=== PATIENT | female | born 1980 | race Caucasian/White ===

== ENCOUNTER 2020-04-25 07:05 | Outpatient (CLI) | payer OTHER, SELFPAY ==
--- NOTE | 2020-04-29 07:59 | SLEEP_ITS ---
HOME SLEEP STUDY DATE OF STUDY: 04/25/2020 ORDERING PHYSICIAN: Dr. Cj Rojas. REASON FOR THE STUDY: Sleep disturbance. HISTORY: This patient is a 39-year-old female, 5 feet 9 inches tall, weighing 355 pounds with a body mass index of 52.4. She has complaints of difficulty staying asleep, frequently waking up during the night. She is unable to lie flat in the bed because of sinus drainage and stuffiness. This all began about 5 or 7 years ago. She has tried Zyrtec-D to help with sinus congestion. She has also tried melatonin to help initiate sleep, but it leaves a hangover effect. There is a family history with her father having sleep apnea and her mother snoring loudly. She wakes up throughout the night, early in the morning and has severe excessive daytime sleepiness. She frequently snores and it is constantly loud enough that others complain about it. She frequently awakens at night with heartburn, belching, and feeling short of breath. She constantly has trouble sleeping with a cold. She suddenly wakes up at night gasping for breath frequently and frequently is told by others that she has breathing problems at night. She occasionally sweats excessively at night, occasionally notices her heart pounding irregularly at night, frequently falls asleep during the day, involuntarily occasionally while driving rarely during physical effort. She does not have loss of muscle tone with strong emotion. She rarely has daytime difficulties due to excessive sleepiness. She is a pharmacist. She occasionally feels paralyzed on waking or falling asleep. She occasionally has vivid dreamlike scenes upon awakening or falling asleep. She does not feel afraid to go to sleep. She rarely has nightmares. She occasionally remembers her dreams, occasionally has racing thoughts. She does not feel sad or depressed. She occasionally has anxiety. Rarely has muscular tension. Occasionally notices parts of her body jerking. She frequently kicks at night, frequently has crawly achy feelings in the leg and frequently has leg pain at night. She does not have morning jaw pain. She does not grind her teeth at night. She occasionally is bothered by pain during the day as well as pain at night. She occasionally wakes up feeling stiff in the morning with sore achy muscles and pain in the neck and spine. She has insomnia. Normal bedtime is between 9:30 and 10 p.m., taking 15 minutes to fall asleep waking 4-5 times at night for 30 minutes to an hour. During this time, she will try to go back to sleep or watch television if she cannot fall asleep again. She wakes up at 7 in the morning. On the weekend, she may go to bed by 11 p.m. and wake up by 9 in the morning. She does sometimes take a short nap. A short nap may be refreshing. She is usually drowsy in the morning for 2 hours or longer. MEDICAL COMORBIDITIES: Hypertension, polycystic ovarian syndrome, edema, seasonal allergies, abdominal pain. MEDICATIONS: 1. Metformin 500 mg daily. 2. Losartan 100 mg daily. 3. Metoprolol succinate 50 mg a day. 4. Spironolactone 100 mg daily. 5. Albuterol inhaler 2 puffs q.i.d. p.r.n. shortness of breath. 6. Dicyclomine 10 mg t.i.d. p.r.n. for abdominal pain. 7. Cyclobenzaprine 10 mg t.i.d. p.r.n. for muscle cramps. HABITS: Never smoked tobacco. Caffeine, 3 servings per day. Alcohol, 3 servings per month. DESCRIPTION OF THE STUDY: On the [place] Sleepiness Scale, the score is 18. This was conducted as an unattended type 3 portable home sleep test using 4 channel monitoring including respiratory effort channel, snoring channel, oxygen saturation channel, and heart rate channel. The duration was 9 hours 13 minutes. The apnea-hypopnea index is 57. Oxygen desaturation index is 45. She h
== END 2020-04-25 07:06 | disposition home or self-care (01) ==
LOC: ANHCSM 07:05
PROVIDERS: PCP Internal Medicine; Visit Provider Internal Medicine
DX: G47.9 Sleep disorder, unspecified (principal); R09.02 Hypoxemia; Z68.43 Body mass index [BMI] 50.0-59.9, adult; I10 Essential (primary) hypertension
CPT/HCPCS: 95806

== ENCOUNTER 2020-06-06 01:32 | Outpatient (CLI) | payer OTHER, SELFPAY ==
[2020-06-06 18:12] LABS: SARS-CoV-2 RNA PCR Negative
== END 2020-06-06 01:33 | disposition home or self-care (01) ==
LOC: ANHCOVIDDT 01:32
PROVIDERS: PCP Internal Medicine; Visit Provider Internal Medicine Critical Care Medicine
DX: Z20.828 Contact with and (suspected) exposure to other viral communicable diseases (principal)
CPT/HCPCS: 87635; C9803; U0003

== ENCOUNTER 2020-06-08 08:50 | Outpatient (CLI) | payer OTHER, SELFPAY ==
--- NOTE | 2020-06-22 21:30 | SLEEP_ITS ---
CPAP TITRATION DATE OF STUDY: 06/08/2020 ORDERING PHYSICIAN: Cj Rojas MD. REASON FOR THE STUDY: Sleep apnea, unspecified. HISTORY: This patient is a 40-year-old female, 69 inches tall, weighing 365 pounds with a body mass index of 53.9. Neck circumference is 22 inches. A prior home sleep test 04/25/2020 showed severe obstructive sleep apnea with AHI 57, desaturation to 40% and a mean saturation of 78%. She has a history of loud snoring with her family observing that she stops breathing while sleeping. This is going on for 1-2 years. She wakes up during the night, wakes up in the certified medical aide hours and has excessive daytime sleepiness. Her father has sleep apnea and the mother snores. She occasionally awakens from sleep feeling short of breath, frequently awakens at night with heartburn, belching, or coughing. She constantly has trouble sleeping with a cold, frequently gasps for breath at night, which wakes her and frequently has breathing problems reported to her by others. She occasionally sweats excessively at night, only rarely notices her heart pounding or beating irregularly at night. She frequently falls asleep during the day, occasionally involuntarily, rarely while driving, and rarely during physical effort. She does not have loss of muscle tone with strong emotion, rarely has daytime difficulties due to excessive sleepiness. She occasionally has vivid dreamlike scenes upon awakening or falling asleep. She is never afraid to go to sleep. She does not have nightmares. She occasionally remembers her dreams and occasionally has racing thoughts. She rarely feels sad or depressed. She occasionally has anxiety. She rarely has muscular tension. She occasionally notices parts of her body jerking, occasionally kicks at night and occasionally has crawly achy feelings in her legs. She frequently has leg pains at night. She rarely has morning jaw pain. She does not grind her teeth during sleep. She frequently is bothered by pain during the day, occasionally is awakened by pain at night. She frequently wakes up feeling stiff in the morning with sore achy muscles. She occasionally wakes up with pain in the neck and spine. She has palpitations, stomach problems, fatigue. Normal bedtime is 10:00 p.m., falling asleep in 2 minutes very quickly, waking 5-6 times at night on average, staying awake 30 minutes to an hour. During that time, she will go to the bathroom or get a drink or snack. She wakes in the morning between 5:00 and 6:00 a.m. She estimates 4-5 hours of sleep at night. Weekend schedule is the same. She works midnight shifts 9:00 p.m. to 7:00 a.m. every other week, 7 days on and 7 days off. She takes naps and a short nap may be refreshing. She is usually drowsy after waking for 2 hours or longer. She feels better in the evening than other times a day. MEDICAL COMORBIDITIES: 1. Hypertension. 2. Polycystic ovarian disease. 3. Edema. 4. Seasonal allergies. 5. Abdominal pain. MEDICATIONS: 1. Metformin 500 mg a day. 2. Losartan 100 mg a day. 3. Metoprolol succinate 50 mg a day. 4. Spironolactone 100 mg a day. 5. Albuterol 2 puffs q.i.d. p.r.n. shortness of breath. 6. Dicyclomine 10 mg t.i.d. p.r.n. abdominal pain. 7. Cyclobenzaprine 10 mg t.i.d. p.r.n. muscle cramps. HABITS: Never smoked tobacco. Caffeine, 3 servings a day. Alcohol, 3 servings per month. DESCRIPTION OF THE STUDY: On the [place] Sleepiness Scale, her score is 19. This was conducted as a full night CPAP titration using the [employer] multiple channel system including EOG, EEG, submental EMG, EKG, nasal and oral airflow using thermistors and nasal pressure sensors, chest and abdominal belts, body position data and pulse oximetry. Video r
== END 2020-06-08 08:51 | disposition home or self-care (01) ==
LOC: ANHCSM 08:51
PROVIDERS: PCP Internal Medicine; Visit Provider Internal Medicine
DX: G47.30 Sleep apnea, unspecified (principal)
CPT/HCPCS: 95811

== ENCOUNTER 2021-01-04 12:53 | Emergency (ER) | payer BC, SELFPAY ==
--- NOTE | ~2021-01-04 | XR_ITS ---
EXAMINATION: XR wrist RT min 3V EXAM DATE: 01/04/2021 13:18 INDICATION: Right wrist pain ? etiology. TECHNIQUE: Right wrist frontal, frontal with ulnar deviation, oblique and lateral projections obtain ed and reviewed. There is no prior study for comparison. FINDINGS: Right wrist scapholunate joint space is maintained. There are no bony erosions identified. Small curvilinear approximately 2 x 6 mm density identified on the lateral projection, volar to the radiocarpal joint. This could be a joint body, could be sequela from osteochondritis ossificans from uncertain donor site, could be from an old fracture. There are no acute fractures or dislocations ree ntified. There is no subcutaneous gas. There are no radiopaque foreign bodies. IMPRESSION: Small curvilinear density with some possible considerations above. Uncertain whether or n ot this is incidental or causing patient's wrist pain. Reviewed, dictated and finalized at location B. IMPRESSION: Small curvilinear density with some possible considerations above. Uncertain whether or not this is incidental or causing patient's wrist pain.
--- NOTE | 2021-01-04 12:57 | ED.UPPEXIN ---
HPI - Extremity Injury (Upper) General Chief Complaint: Extremity Injury, Upper Stated Complaint: right wrist pain Time Seen by Provider: 01/04/21 12:57 Source: patient and RN notes reviewed Mode of arrival: ambulatory Limitations: no limitations History of Present Illness HPI narrative: 40-year-old female presents to the [facility] with complaints of right wrist pain. Denies any trauma. Patient reports that yesterday morning she woke up and had some swelling and pain to her right wrist and hand. Decreased range of motion secondary to pain. Has been using ice and ibuprofen with minimal to no relief. right hand dominant Patient does have a history of diabetes, hypertension, lymphedema Related Data Home Medications Medication Instructions Recorded Confirmed furosemide 2 mg PO BID 01/04/21 01/04/21 losartan 1 mg PO DAILY 01/04/21 01/04/21 metformin 1 mg PO DAILY 01/04/21 01/04/21 potassium chloride 1 meq PO BID 01/04/21 01/04/21 spironolactone 1 mg PO DAILY 01/04/21 01/04/21 Allergies Allergy/AdvReac Type Severity Reaction Status Date / Time FREEDOM Inhibitors Allergy Mild Verified 02/27/13 11:04 methyldopa Allergy Mild Verified 02/27/13 11:04 amoxicillin Allergy Unknown Verified 02/25/15 11:00 AMOXICILLIN TRIHYDRATE Allergy Unknown VOMITING Uncoded 01/05/14 10:20 CAN TAKE OTHER PCN POTASSIUM CLAVULANATE Allergy Unknown VOMITING Uncoded 01/05/14 10:20 CAN TAKE OTHER PCN Review of Systems Review of Systems: All systems reviewed & are unremarkable except as noted in HPI and below Constitutional: Constitutional: Reports no additional constitutional complaints Cardiovascular: Cardiovascular: Reports no additional cardiovascular complaints and Denies chest pain Respiratory: Respiratory: Reports no additional respiratory complaints, Denies cough and Denies dyspnea Gastrointestinal: Gastrointestinal: Reports no additional gastrointestinal complaints, Denies abdominal pain, Denies diarrhea, Denies nausea and Denies vomiting Genitourinary: Genitourinary: Reports no additional female genitourinary complaints Musculoskeletal: Musculoskeletal: Reports arthralgias (Right wrist) and Reports joint swelling (Right wrist) Integumentary/Breasts: Skin/Breast: Reports system reviewed and no additional complaints, except as docu, Denies erythema and Denies rash Neurologic: Reports system reviewed and no additional complaints, except as documented, Denies headache(s) and Denies weakness Psychiatric: Psychiatric: Reports no additional psychiatric complaints PMFSH Past Medical History Medical History (Updated 01/05/21 @ 08:04 by Crissy Masters) Diabetes Hypertension Lymphedema Social History Social History Smoking status: Never smoker Alcohol intake: current Gender identity (if verbalized by the patient): Female Comments At the time of my signature, I reviewed and agree with the nursing past medical, surgical, social, and family history. There is no relevant family history pertinent to the patient complaint. Exam Const: General: healthy appearing, no acute distress and alert Nutritional Appearance: well nourished and obese Orientation/consciousness: patient oriented x3 Neck: Neck: normal visual inspection Chest: Chest palpation & inspection: normal inspection of the chest Resp: Effort & Inspection: normal respiratory effort Auscultation: clear to auscultation bilaterally Cardio: Rate: regular rate Skin: General skin exam: normal color Rashes: no rashes Wounds: no wounds Neuro: General: patient oriented x3 and moves all extremities Speech: normal speech Gait exam (Neuro): Normal gait present Extrem: Right upper extremity: normal capillary refill, shoulder/upper arm normal to inspection and normal ROM; no tenderness and no swelling, elbow/forearm normal to inspection and normal ROM; no tenderness and no swelling, wrist abnormal to insp
[2021-01-04 13:06] VITALS: BP 157/83; PULSE 81; RESP 16; TEMP 36.9; O2SAT 98
== END 2021-01-04 13:58 | disposition home or self-care (01) ==
PROVIDERS: Emergency Provider Nurse Practitioner; PCP Internal Medicine
DX: M25.531 Pain in right wrist (principal); E11.9 Type 2 diabetes mellitus without complications; I10 Essential (primary) hypertension
CPT/HCPCS: 29125; 73110; 99213; G0463

== ENCOUNTER 2021-08-30 11:12 | Outpatient (CLI) | payer BC, SELFPAY ==
--- NOTE | ~2021-08-30 | US_ITS ---
EXAMINATION: US abdomen complete DATE: 08/30/2021 11:40 INDICATION: Abdominal swelling. TECHNIQUE: Multiple grayscale and Doppler ultrasound images of the abdomen were obtained. COMPARISON: Ultrasound 10/16/2016, CT abdomen and pelvis 10/13/2011 FINDINGS: The visualized portions of the head, body, and tail of the pancreas are normal. Abdominal a evan is normal in caliber. Inferior vena cava is normal. The liver is normal without focal lesion. Th ere is normal flow in main portal vein. The gallbladder is normal in size. No gallstones or gallbladd er wall thickening. There was no sonographic Alexander sign. The common duct is normal and measures 4 mm . The kidneys are normal in size. The spleen is normal in size. IMPRESSION: 1. Normal complete abdomen ultrasound. Reviewed, dictated and finalized at location A. [employer]
== END 2021-08-30 11:13 ==
LOC: MICIMG 11:13
PROVIDERS: PCP Internal Medicine
DX: R19.00 Intra-abdominal and pelvic swelling, mass and lump, unspecified site (principal)
CPT/HCPCS: 76700

== ENCOUNTER 2023-04-24 09:47 | Outpatient (CLI) | payer BC, SELFPAY ==
--- NOTE | ~2023-04-24 | MM_ITS ---
EXAMINATION: MM screening radha BI w andreea HISTORY: Screening mammogram TECHNIQUE: Craniocaudal and mediolateral oblique 3-D tomosynthesis images were obtained and synthetic 2-D images were generated. Bilateral rotated lateral CC views. CAD analysis was submitted and interp reted. COMPARISON: 08/31/2019 bilateral diagnostic mammography and bilateral Limited breast ultrasound exami nation 07/24/2019 bilateral screening mammogram BREAST PARENCHYMAL COMPOSITION: There are scattered areas of fibroglandular density. FINDINGS: There is a biopsy marker in the right; history of prior benign right breast biopsy. There i s no evidence of suspicious mass, calcification, or architectural distortion to suggest malignancy in either breast. There has been no suspicious interval change. IMPRESSION: 1. No mammographic evidence of malignancy. 2. Recommend routine screening mammography in one year. BI-RADS Category 1: Negative Reviewed, dictated and finalized at location A.
== END 2023-04-24 09:48 | disposition home or self-care (01) ==
LOC: ANHIMG 09:51
PROVIDERS: PCP Internal Medicine; Visit Provider Student in an Organized Health Care Education/Training Program
DX: Z12.31 Encounter for screening mammogram for malignant neoplasm of breast (principal)
CPT/HCPCS: 77063; 77067

== ENCOUNTER 2024-04-13 11:35 | Emergency (ER) | payer BC, SELFPAY ==
--- NOTE | 2024-04-13 11:37 | ED.URI ---
HPI - URI/Sore Throat General Chief Complaint: Upper Respiratory Infection Stated Complaint: Sore Throat Time Seen by Provider: 04/13/24 12:15 Source: patient and RN notes reviewed Mode of arrival: ambulatory Limitations: no limitations History of Present Illness HPI Narrative: 43-year-old female presents concern for sore throat that started Saturday. She reports headache, bilateral ear pain. She denies fever, nasal congestion rhinorrhea MD elicited complaint: sore throat Related Data Home Medications Medication Instructions Recorded Confirmed losartan 100 mg tablet 1 mg PO DAILY 01/04/21 04/13/24 spironolactone 100 mg tablet 1 mg PO DAILY 01/04/21 04/13/24 metformin 500 mg tablet,extended 1,000 mg PO BID 10/09/22 04/13/24 release 24 hr empagliflozin 10 mg tablet 10 mg PO DAILY 10/22/23 04/13/24 (Jardiance) levothyroxine 112 mcg tablet 112 mcg PO DAILY 10/22/23 04/13/24 levothyroxine 150 mcg tablet 150 mcg PO DAILY 10/22/23 04/13/24 metoprolol succinate 25 mg 25 mg PO DAILY 10/22/23 04/13/24 tablet,extended release 24 hr Allergies Allergy/AdvReac Type Severity Reaction Status Date / Time amoxicillin [From Augmentin] Allergy Intermediate Nausea and Verified 04/13/24 11:46 Vomiting clavulanic acid Allergy Intermediate Nausea and Verified 04/13/24 11:46 [From Augmentin] Vomiting FREEDOM Inhibitors Allergy Mild Cough Verified 04/13/24 11:46 methyldopa Allergy Mild Joint Pain Verified 04/13/24 11:46 Review of Systems Review of Systems: CONSTITUTIONAL: Denies malaise, chills, sweats, or fever. EYES: Denies visual changes, redness, or discharge. ENT: Reports rhinorrhea, congestion, sinus pain. Reports otalgia and sore throat. CARDIOVASCULAR: Denies chest pain, palpitations, or edema. RESPIRATORY: Denies cough. Denies dyspnea. GASTROINTESTINAL: Denies abdominal pain, nausea, vomiting, diarrhea SKIN: Denies rash or itching. MUSCULOSKELETAL: Denies myalgia. NEUROLOGIC: Reports headache. All systems reviewed & are unremarkable except as noted in HPI and below PMFSH Past Medical History Medical History (Updated 04/13/24 @ 12:19 by Crissy Haywood NP) Diabetes Hypertension Lymphedema Screening mammogram for breast cancer Surgical History Surgical History (Updated 10/22/23 @ 10:41 by Tiffani Marley CMA) H/O thyroidectomy Social History Social History Smoking status: Never smoker Alcohol intake: current Substance use: never Living arrangements: other Additional living arrangements comments: Occupation/Education: occupation Gender identity (if verbalized by the patient): Female Sexual Orientation (if Verbalized by the Patient): Straight or Heterosexual Comments At time of signature, agree with nursing past medical, surgical, social and family history. There is no relevant family history pertinent to the presenting complaint Exam Narrative: GENERAL: Well-appearing, well-nourished, and in no acute distress. HEAD: Normocephalic EYES: PERRLA, conjunctivae clear ENT: Nares clear. Mucous membranes moist. TM pearly anderson with dull light reflex bilaterally; no tragal tenderness. Oropharynx erythematous without lesions. Tonsils not enlarged and without exudate, no drooling, no hoarseness, no trismus, uvula midline. NECK: Supple. No lymphadenopathy CHEST: Clear to auscultation, breath sounds equal. No wheezing, rhonchi, rales, or stridor. No respiratory distress, speaks in full sentences. HEART: Regular rate and rhythm. No murmur heard. SKIN: Warm, dry, no rash. NEURO: Alert and oriented x3. PSYCH: Normal mood and affect Course Course Emergency Course: Patient is aware of diagnosis, understands and agrees to treatment plan. Anticipatory guidance given. Patient agrees to follow-up as directed and is aware of reasons to seek care at the emergency department. Portions of this record may have been created with voice r
[2024-04-13 11:50] VITALS: BP 155/83; PULSE 84; RESP 18; TEMP 36.6; O2SAT 98
[2024-04-20 14:14] LABS: EDINFLUASCREEN NEGATIVE; EDINFLUBSCREEN NEGATIVE; EDSTREPNEGPOS1 POSITIVE
== END 2024-04-13 12:25 | disposition home or self-care (01) ==
PROVIDERS: Emergency Provider Nurse Practitioner; PCP Internal Medicine
DX: J02.0 Streptococcal pharyngitis (principal); Z20.822 Contact with and (suspected) exposure to COVID-19; E11.9 Type 2 diabetes mellitus without complications; I10 Essential (primary) hypertension; E89.0 Postprocedural hypothyroidism; Z79.84 Long term (current) use of oral hypoglycemic drugs
CPT/HCPCS: 87426; 87804; 87880; 99213; G0463